=== PATIENT | female | born 1970 | race Caucasian/White ===

== ENCOUNTER 2017-02-10 08:28 | Day surgery (SDC) | payer OTHER ==
[~2017-02-10] VITALS: Ht 170.2 cm; Wt 88.5 kg
[~2017-02-10 08:28] MED LIST: 0.9% Sodium Chloride 1,000 ML IV SCH; 5-HY50CA2 PO; ACET325C PO; ASCO-294 PO; BUPR100T15 PO; CALC1POW29 MC; CETI10CA PO; KLO5T PO; LORA10CA9 PO; MULT-666 PO; NIC7 TRANSDERM; OMEG-38 PO; PANT20T PO; Sodium Chloride LOK Flush 10 mL Syringe IV PRN; VENL75CA PO; VIT100TA PO; fentaNYL-PF 50 mCg/mL 2 mL Inj IVPUSH PRN
[2017-02-10 09:07] VITALS: BP 128/82; PULSE 85; RESP 16; O2SAT 96
[2017-02-10 09:53] VITALS: BP 142/91; PULSE 83; RESP 16; O2SAT 95
[2017-02-10 10:02] VITALS: BP 128/81; PULSE 89; RESP 14; O2SAT 98
--- NOTE | 2017-02-10 16:07 | ENDO ---
[address] [address] ENDOSCOPY PROCEDURE PATIENT: KELLY ZAVALA : 1970 MR#: [id number] ADMIT: 02/10/2017 JOB ID: [id number] PROCEDURE: Esophagogastroduodenoscopy. INDICATION: Gastroesophageal reflux. Patient's ASA classification is II. Mallampati score is II. MEDICATIONS: Versed 5 mg, fentanyl 100 mcg. INSTRUMENT USED: [id number] PROCEDURE DETAILS: After informed consent was obtained, the patient was brought into the GI suite, where she was placed on oxygen via nasal cannula and monitored with continuous pulse oximeter, telemetry, and blood pressure monitoring. A time-out was performed. Then, she was placed in a left lateral decubitus position and medications were administered for sedation. A bite block was placed. The standard EGD scope was inserted through the bite block and advanced under direct visualization to the second portion of the duodenum without difficulty. FINDINGS: 1. Normal-appearing duodenal bulb, first and second portion. 2. Normal-appearing pylorus, antrum, and gastric body. 3. Retroflexed views in the gastric body revealed several diminutive-appearing polyps. One polyp was biopsied for sampling. 4. Multiple random biopsies were obtained throughout the antrum and body of the stomach to rule out H. pylori. 5. Normal-appearing GE junction with a regular Z-line at 41 cm. 6. Normal-appearing esophagus. IMPRESSION: Multiple benign-appearing polyps in the fundus. Otherwise normal exam to second portion of the duodenum. RECOMMENDATIONS: 1. Continue PPI. 2. Reflux precautions. 3. Follow up in GI clinic. COMPLICATIONS: None. ESTIMATED BLOOD LOSS: Less than 5 mL.
--- NOTE | 2017-02-11 15:12 | PATH ---
SURGICAL PATHOLOGY Attending Physician:Lisseth Toth CASE STATUS: Signed Out PATIENT NAME: KELLY ZAVALA PID: [id number] : 1970 DATE COLLECTED:02/10/2017 16:44 SPECIMEN: 1: Gastric, Biopsy 2: Stomach, Polyp, Biopsy CLINICAL HISTORY: 1). RANDOM GASTRIC BIOPSY (RULE OUT H.PYLORI) 2). GASTRIC FUNDUS POLYP FINAL DIAGNOSIS: 1. Random Gastric Biopsies: Portions of gastric antral and body-type mucosa with no diagnostic abnormality. No definite H. pylori organisms identified by H&E stain. Immunohistochemistry studies pending; results will be reported as an addendum. There is no evidence of intestinal metaplasia, dysplasia, and malignancy. 2. Fundus Polyp, Biopsy: Fundic gland polyp. Negative for intestinal metaplasia, dysplasia, and malignancy. ICD10: K29.7 GROSS DESCRIPTION: The specimen is received in two formalin filled containers labeled with the patient's name. 1). The specimen is labeled "random gastric" and consists of 2 portions of tissue which aggregate to 0.4 x 0.3 x 0.2 CM. The specimen is entirely submitted in cassette 1A. 2). The specimen is labeled "fundus polyp" and consists of a 0.2 x 0.2 x 0.2 CM portion of tissue which is entirely submitted in cassette 2A. 02/10/2017DC ICD-9 CODES: CPT CODES: 1: 13206, 91509 2: 88416 PROCEDURE/ADDENDA: Addendum SPI Addendum Diagnosis 1. Gastric Biopsy: Negative for H. pylori organisms by immunohistochemistry studies. Addendum Comment {Not Entered} Electronically Signed Out Za Jerez MD Electronically Signed Out Za Jerez MD [facility], [place] [address] Technical component performed at [facility], [address] [place] [address] Ave[address], [place], [address]
== END 2017-02-10 23:59 | disposition home or self-care (01) ==
LOC: END 08:28
PROVIDERS: ATTEND Internal Medicine Gastroenterology
DX: K31.7 Polyp of stomach and duodenum (principal); K21.9 Gastro-esophageal reflux disease without esophagitis; F41.8 Other specified anxiety disorders; E55.9 Vitamin D deficiency, unspecified; E66.9 Obesity, unspecified; Z68.31 Body mass index [BMI] 31.0-31.9, adult; Z72.0 Tobacco use
CPT/HCPCS: 43239; G0500; J2250; J3010; J7030